=== PATIENT | female | born 1935 | race Caucasian/White ===

== ENCOUNTER 2016-09-26 09:25 | Emergency (ER) | payer MEDICARE, OTHER ==
[~2016-09-26] VITALS: Ht 157.5 cm; Wt 83.2 kg
[~2016-09-26 09:25] MED LIST: ACET-2766 PO; ALBU18HF INH; ALPR0.5T8 PO; CHOL200047 PO; CYCL10TA9 PO; GARL500C PO; LEVO125T6 PO; LISI10TA PO; OMEP20CA11 PO; PRE625 PO
[2016-09-26 09:30] VITALS: BP 208/98; PULSE 79; RESP 18; O2SAT 97
--- NOTE | 2016-09-26 09:57 | ED.REPORT ---
HPI-General Illness Date of Service Sep 26, 2016 ED Provider: Bettina Hernandez MD Patient is a 80 year old female with a history of hypertension and chronic renal failure who presents to the ED complaining of high blood pressure readings at home. Associated symptoms include headache for several weeks. The patient reports that she was taken off her old blood pressure medication due to her kidney issues and potassium levels and was recently started on Carvedilol two days ago but has continued to have high blood pressure. Her average readings have been in the 165-190's. Patient has no other complaints at this time. Nursing Notes Stated Complaint: HIGH BLOOD PRESSURE Chief Complaint: General Complaint Nursing Notes Reviewed: Yes Allergies: Coded Allergies: Penicillins (Verified Allergy, Severe, SEVERE, 09/16/16) NSAIDS (Non-Steroidal Anti-Inflamma (Verified Allergy, Mild, cannot take, pt has only 1 kidney , 09/16/16) morphine (Verified Adverse Reaction, Unknown, Nausea,Vomiting, 09/16/16) Uncoded Allergies: POLLEN (Allergy, Unknown, RESP PROBLEMS, 11/03/04) Scheduled Cholecalciferol (Vitamin D3) (Vitamin D3) 2,000 Unit Capsule 2,000 UNIT PO DAILY Estrogens Conjugated (Premarin) 0.625 Mg Tablet 0.625 MG PO DAILY Garlic (Garlic) 500 Mg Capsule 500 MG PO DAILY Levothyroxine (Levothyroxine) 125 Mcg Tablet 125 MCG PO DAILY Lisinopril (Lisinopril) 10 Mg Tablet 10 MG PO DAILY Omeprazole (Omeprazole) 20 Mg Capsule.dr 20 MG PO DAILY Scheduled PRN Acetaminophen (Tylenol Arthritis) 650 Mg Tablet.er 650 MG PO DAILY PRN PRN For Pain Albuterol Sulfate (Ventolin HFA Inhaler) 200 Puff/18 Gm Inhaler 2 PUFF INH Q4 PRN PRN For Wheezing Alprazolam (Alprazolam) 0.5 Mg Tablet 0.5 MG PO TID PRN PRN For Anxiety Cyclobenzaprine (Cyclobenzaprine) 10 Mg Tablet 10 MG PO HS PRN PRN Spasm General Time Seen by MD: 09:56 Chief Complaint Other (hypertension) Hx Obtained From: Patient Arrived By: Walk-in Sudden in Onset?: No Location: : Head Quality: Painful Radiation: : Does not radiate Severity: Current: Moderate Recent Healthcare: Recent doctor visit Similar Sx Previous: Yes Past Medical History Past Medical History rectal bleeding h/o anemia depression anxiety Reports: Asthma, GERD, Hypertension Reports: Thyroid disease Past Surgical History Reports: Appendectomy, , Cholecystectomy Reports: Back/neck surgery Smoking History Former Smoker Social History Alcohol Use: "Social" Drug Use: Denies drug use Other Social History: Good social support, , Local resident Ambulatory Status Independent Review of Systems Full Review of Systems Constitutional: Denies: Chills, Fever Respiratory: Denies: Non-productive cough, Shortness of breath, Wheezing Cardiovascular: Denies: Chest pain, Palpitations GI: Denies: Vomiting Skin: Denies Diaphoresis, Denies Itching, Denies Rash, Denies Swelling Neurologic: Reports: Headache, Denies: Lightheaded, Numbness, Weakness Complete sys rev & neg: except as marked. Physical Exam Vital Signs Vital Signs Date Time Temp Pulse Resp B/P Pulse Ox O2 Delivery O2 Flow Rate FiO2 09/26/16 10:34 36.5 96 17 191/57 97 Room Air 09/26/16 10:04 74 16 197/75 96 Room Air 09/26/16 09:30 36.7 79 18 208/98 97 Initial VS: Reviewed General/Constitutional: Awake, Alert, No acute distress Head / Eyes: Atraumatic, Normocephalic, PERRL, EOMI Neck: Atraumatic, Full range of motion Respiratory / Chest: Atraumatic, Breath sounds NL, Breath sounds = bilat, No respiratory distress Cardiovascular: Heart rate NL (90), Regular rhythm, Heart sounds NL Upper Extremities Upper Extremity / MS: Atraumatic, Full range of motion Lower Extremity / Pelvis / MS: Atraumatic, Full range of motion Skin: Atraumatic, Color NL, No rash, Warm, Dry Neurologic: Oriented X3, Speech NL, No motor deficits, No sensory deficits Psychiatric: Affect NL, Mood NL Interpretation & Diagnostics Lab Results Interpretation Test 09/26/16 09:55 Hold Urine Received (Received) Re-Eval/Medical Decision Time of Eval: 10:30 Re-Evaluation/Progress Note: Discussed plan to increase blood pressure medication and discharge. Patient understands and agrees to plan. All questions were addressed. Counseled Regarding: Diagnosis, Need for follow-up, When/why to return to ED Discharge & Departure Primary Impression: Hypertension Hypertension type: unspecified secondary hypertension Qualified Code: I15.9 - Secondary hypertension, unspecified Disposition: Home Discharge Condition All VS Reviewed: Yes Condition: Stable Patient Instructions: Hypertension (ED) Additional Instructions: Your heart sounds normal and your heart rate was normal. This is all a good sign. Increase your blood pressure medication, Carvedilol to 6.5mg, twice a day. You will be taking two of your pills in the morning and two at night. Follow up with Dr. Jefferson in 1-2 weeks for re-evaluation. You have an appointment scheduled for October 04 at 11:00 with a check in time at 10:50am. Return to the emergency department if you develop any new or concerning symptoms including chest pain, shortness of breath or if you feel weak. Referrals: Cali Jefferson MD (PCP) Scribe Attestation Portions of this note were transcribed by Raiza Garcia. I, Dr. Hernandez personally performed the history, physical exam and medical decision-making; I reviewed and confirmed the accuracy of the information in the transcribed note. Signed by: Mitali Simmons, 09/26/16 copies to: Cali Jefferson MD, Shawna L MD Sep 26, 2016 09:57 Shireen Garcia Sep 26, 2016 10:09
[2016-09-26 10:04] VITALS: BP 197/75; PULSE 74; RESP 16; O2SAT 96
[2016-09-26 10:34] VITALS: BP 191/57; PULSE 96; RESP 17; O2SAT 97
[2016-09-26 10:48] VITALS: BP 191/57; PULSE 96; RESP 17; O2SAT 97
== END 2016-09-26 10:45 | disposition home or self-care (01) ==
LOC: SED 09:25
DX: I15.9 Secondary hypertension, unspecified (principal); K21.9 Gastro-esophageal reflux disease without esophagitis; Z87.891 Personal history of nicotine dependence; Z88.0 Allergy status to penicillin; Z88.5 Allergy status to narcotic agent; Z88.6 Allergy status to analgesic agent